=== PATIENT | female | born 1975 | race African-American/Black ===

== ENCOUNTER 2023-07-28 09:49 | Emergency (ER) | payer BC ==
[2023-07-28 11:01] LABS: ALKALINE PHOSPHATASE 82 IU/L (46-116)
[2023-07-28 11:11] LABS: BASOPHILS ABSOLUTE AUTO 0.03 K/uL (0.00-0.20); BASOPHILS PERCENT AUTO 0.5 % (0.0-2.0); EOSINOPHILS ABSOLUTE AUTO 0.02 K/uL (0.00-0.50); EOSINOPHILS PERCENT AUTO 0.4 % (0.0-5.0); HEMATOCRIT 44.3 % (34.0-46.0); HEMOGLOBIN 14.7 g/dL (11.7-15.5); LYMPHOCYTES ABSOLUTE AUTO 2.18 K/uL (0.50-3.50); LYMPHOCYTES PERCENT AUTO 38.3 % (10.0-50.0); MEAN CORPUSCULAR HEMOGLOBIN 28.6 pg (28.2-33.3); MEAN CORPUSCULAR HGB CONC 33.2 g/dL (31.7-36.0); MEAN CORPUSCULAR VOLUME 86.2 fL (84.0-98.0); MONOCYTES ABSOLUTE AUTO 1.02 K/uL (0.00-1.00); MONOCYTES PERCENT AUTO 17.9 % (2.0-14.0); NEUTROPHILS ABSOLUTE AUTO 2.44 K/uL (1.40-7.00); NEUTROPHILS PERCENT AUTO 42.9 % (45.0-80.0); PLATELET COUNT,PLT 189 K/uL (150-350); RED BLOOD CELL COUNT 5.14 M/uL (3.77-5.09); RED CELL DISTRIBUTION WIDTH 13.4 % (11.2-14.1); WHITE BLOOD CELL COUNT,WBC 5.7 K/uL (4.0-10.2)
[2023-07-28 11:19] LABS: ALANINE AMINOTRANSFERASE,ALT 36 U/L (12-78); ANION GAP 10.1 meq/L (7-15); ASPARTATE AMNIOTRANSFERASE,AST 42 U/L (15-37); BILIRUBIN TOTAL 0.6 mg/dL (0.2-1.0); CARBON DIOXIDE,CO2 27.9 mmol/L (21.0-32.0); CHLORIDE,CL 103 mmol/L (98-107); POTASSIUM,K 4.8 mmol/L (3.5-5.1); PROTEIN TOTAL,TP 8.4 g/dL (6.4-8.2); SODIUM,NA 141 mmol/L (136-145)
[2023-07-28 11:20] LABS: ESTIMATED GFR 83 mL/min (>=60); GLUCOSE RANDOM 109 mg/dL (70-99)
[2023-07-28 11:21] LABS: BLOOD UREA NITROGEN,BUN 12 mg/dL (7-18); CALCIUM 9.4 mg/dL (8.5-10.1); CREATININE 0.88 mg/dL (0.51-1.17)
== END 2023-07-28 12:05 | disposition home or self-care (01) ==
LOC: LL.ED 09:49
DX: U07.1 COVID-19 (principal); F41.9 Anxiety disorder, unspecified
CPT/HCPCS: 36415; 80053; 85025; 93005; 99284